=== PATIENT | female | born 1995 | race Hispanic/Latino ===

== ENCOUNTER 2024-10-24 09:53 | Outpatient (CLI) | payer OTHER, SELFPAY ==
--- NOTE | ~2024-10-24 | US_ITS ---
EXAMINATION: US pelvic complete INDICATION: Pelvic pain Comparison:No prior studies for comparison. TECHNIQUE: Multiple transabdominal sonographic images of the pelvis performed. FINDINGS: The uterus measures 7.3 x 3.6 x 3.5 cm. IUD is identified in the endometrium. The endometri al complex measures 11 mm. The right ovary measures 4.6 x 2.3 x 3.8 cm and the left ovary measures 3.1 x 1.8 x 1.8 cm. There ar e small follicles in each ovary. Normal doppler signal in both ovaries. There is no free fluid in the pelvis. There are no abnormal masses seen on either side. IMPRESSION: 1. Unremarkable pelvic ultrasound. IUD in expected position within the endometrium. Reviewed, dictated and finalized at location A. IMPRESSION: 1. Unremarkable pelvic ultrasound. IUD in expected position within the endometr ium.
== END 2024-10-24 09:54 | disposition home or self-care (01) ==
LOC: MICIMG 09:57
PROVIDERS: Visit Provider Nurse Practitioner
DX: R10.2 Pelvic and perineal pain (principal); Z97.5 Presence of (intrauterine) contraceptive device
CPT/HCPCS: 76856